=== PATIENT | male | born 1940 | race Caucasian/White ===

== ENCOUNTER 2018-09-28 06:20 | Day surgery (SDC) | payer BC ==
[~2018-09-28 06:20] MED LIST: BUPIVACAINE HCL/PF (5 MG/ML) 30 ML VIAL IJ ONE
[2018-09-28 06:53] VITALS: BMI 24.7
[2018-09-28] MEDS ORDERED: LIDOCAINE HCL/PF 2% SDV 5ML VIAL ONE (08:03)
[2018-09-28] MEDS ORDERED: PROPOFOL 20 ML ONE ×2 (08:04)
[2018-09-28] MEDS ORDERED: MIDAZOLAM HCL 2 MG/2 ML SINGLE DOSE VIAL ONE (08:04)
[2018-09-28] MEDS ORDERED: BUPIVACAINE HCL/PF 0.5% (5MG/ML) 10 ML VIAL ONE (08:09)
[2018-09-28] MEDS ORDERED: BUPIVACAINE HCL/PF (5 MG/ML) 30 ML VIAL IJ ONE (09:07)
[2018-09-28] MEDS ORDERED: KETOROLAC TROMETHAMINE 30 MG/1 ML VIAL ONE (09:15)
[2018-09-28] MEDS ORDERED: ACETAMINOPHEN 325 MG TABLET (FP) PO PRN (09:43)
[2018-09-28] MEDS ORDERED: ONDANSETRON 4 MG/2 ML VIAL IVPUSH PRN (09:43)
[2018-09-28] MEDS ORDERED: LACTATED RINGERS SOLUTION 1,000 ML IV SCH (09:45)
--- NOTE | 2018-09-28 10:54 | OP ---
Operative Note - Note: Operative Date: 09/28/18 Pre-Operative Diagnosis: left hydrocele Operation: left hydrocelectomy Findings: large left hydrocele Post-Operative Diagnosis: Same as Pre-op Surgeon: Rodney Brand Anesthesia: General Specimens Removed: hydrocele sac
--- NOTE | 2018-09-28 11:49 | OP ---
DATE OF OPERATION: 09/28/2018 PREOPERATIVE DIAGNOSIS: Left hydrocele. POSTOPERATIVE DIAGNOSIS: Left hydrocele. PROCEDURE: Left hydrocelectomy. ATTENDING SURGEON: Thiago Brand MD ANESTHESIA: General. OPERATION: As follows, the patient was brought into the operating room and placed in a supine position on the operating room table. Anesthesia and preoperative antibiotics were administered. At this point, the patient was prepped and draped in the usual sterile manner. A left hydrocele is noted. A left hemiscrotal horizontal incision measuring 4 cm is performed. Blunt and sharp dissections taken to the level of the hydrocele sac. At this point, the scrotal contents are brought exterior to the scrotum. The hydrocele sac was entered. The fluid is drained. The hydrocele sac was excised with electrocautery circumferentially. The margins of the hydrocele sac are then oversewn with a running 3-0 Vicryl stitch. A 2 layered closure is performed. Dartos fascia was reapproximated using 3-0 Vicryl stitches. The skin is closed with interrupted 3-0 chromic stitches. The patient tolerated the procedure very well. There were no complications noted. Local anesthesia was placed after the procedure. The disposition of the patient was to the recovery room. THIAGO DIETRICH M.D. [id number]
[2018-09-28 12:33] VITALS: BP 118/78; PULSE 62; TEMP 98
--- NOTE | 2018-09-29 15:54 | PATH ---
Surgical Pathology Report Patient Name: ARLEEN MENDIOLA [facility]. Rec. #: [id number] /Age/Gender: 1940 (Age: 77) / M Account: [id number] Location: [facility] SURGICAL Taken: 09/28/2018 Received: 09/28/2018 Reported: 09/29/2018 Physicians: Rodney Brand Specimen(s) Received LEFT HYDROCELE SAC Clinical History Left hydrocele Final Diagnosis LEFT HYDROCELE SAC, EXCISION: FIBROMEMBRANOUS TISSUE CONSISTENT WITH HYDROCELE SAC. Electronically Signed Jefferson Cedillo M.D. Gross Description Received in formalin labeled "left hydrocele sac," is a 4.7 x 2.5 x 0.2 cm nobles pink portion of fibromembranous tissue, consistent with a hydrocele sac. Size Marker sections are submitted in one cassette. /09/28/2018 saudi09/28/2018
== END 2018-09-28 12:00 | disposition home or self-care (01) ==
LOC: JASU-SURG 06:20
PROVIDERS: ATTEND Urology
PROC: 0VB70ZZ Excision of Left Tunica Vaginalis, Open Approach (ICD-10-PCS; principal; 2018-09-28 08:00)
DX: N43.2 Other hydrocele (principal); I10 Essential (primary) hypertension; E11.9 Type 2 diabetes mellitus without complications; Z79.84 Long term (current) use of oral hypoglycemic drugs; K21.9 Gastro-esophageal reflux disease without esophagitis
CPT/HCPCS: 82962; 88304-TC; 94760